=== PATIENT | male | born 1935 | race Caucasian/White ===

== ENCOUNTER 2016-05-13 11:45 | Inpatient (IN) | payer MEDICARE, OTHER ==
[~2016-05-13] VITALS: Ht 200.7 cm; Wt 76.6 kg
[~2016-05-13 11:45] MED LIST: ALLERGY RELIEF PO; ASPIRIN 81 MG E81 MG PO; BETAPACE 80 MG80 MG PO; CALCIUM 600+D T1 TA1 PO; CALCIUM PO; COLLAGEN PO; COMBIGAN OPHT DR5 ML OP; GLUCOSAMINE & C1 CAP PO; K-TAB10 MEQ PO; KRILL OIL 1,001 EAC1 PO; KRILL OIL PO; LAMISIL250 MG PO; LASIX20 MG PO; LIPITOR10 MG PO; LOPRESSOR25 MG PO; MULTIPLE VITAMI1 TA1 PO; NIACIN PO; NIASPAN1000 MG PO; PLAVIX75 MG PO; STOOL SOFTENER100 M1 PO; STOOL SOFTENER250 MG PO; VITAMIN B COMPL1 TAB PO; VITAMIN C1000 MG PO; VITAMIN D31000 UNIT PO; VITAMIN E1000 UNIT PO; VITAMIN E400 UNI2 PO; ZESTRIL10 MG PO; ZINC PO; ZINC50 MG PO; [UNRECOGNIZED DRUG - OTHER] PO
--- NOTE | 2016-05-13 12:25 | NUR ---
RECEIVED PT THRU ADMISSIONS FROM DR WOO'S OFFICE AAOX4 RESP UNLABORED GENERALIZED WEAKNESS NOTED DENIES ANY PAIN OR DISCOMFORT WILL CONTINUE TO MONITOR
[2016-05-13 12:40] LABS: BASOPHILS 0.5 % (0.0-2.0); EOSINOPHILS 2.5 % (0-7); HEMOGLOBIN 12.1 g/dL (13.5-17.5); IMMATURE GRANULOCYTES 0.2 % (0-5); LYMPHOCYTES 25.9 % (15-50); MCH 28.7 pg (26.0-34.0); MCHC 32.7 g/dL (31.0-37.0); MCV 87.7 fL (80.0-100.0); MEAN PLATELET VOLUME 10.3 fL (7.4-10.4); MONOCYTES 12.5 % (2-11); NEUTROPHILS 58.4 % (40-80); PLATELET COUNT 178 10x3/uL (130-400); RBC 4.22 10x6/uL (4.20-6.10); RDW 14.2 % (11.5-14.5); WBC 4.3 10x3/uL (4.8-10.8)
[2016-05-13 13:02] LABS: ALBUMIN 3.2 g/dL (3.4-5.0); ALKALINE PHOSPHATASE 75 U/L (46-116); ALT (SGPT) 25 U/L (10-68); CALC OSMOLALITY 281 mosm/kg (275-300); CALCIUM 8.8 mg/dL (8.5-10.1); CARBON DIOXIDE 27.1 mmol/L (21.0-32.0); CHLORIDE - SERUM 104 mmol/L (98-107); CREATININE - SERUM 1.1 mg/dL (0.6-1.3); GLUCOSE 83 mg/dL (74-106); POTASSIUM - SERUM 3.8 mmol/L (3.5-5.1); PROTEIN - SERUM 7.1 g/dL (6.4-8.2); SODIUM 139 mmol/L (136-145); UREA NITROGEN 26 mg/dL (7-18); eGFR NON AFRICAN AMERICAN 68 mL/min (90-120)
[2016-05-13 13:16] LABS: CKMB 2.5 U/L (0.0-3.6); CREATINE KINASE 67 UL (21-232); THYROID STIMULATING HORMONE 2.26 uIU/mL (0.36-3.74)
[2016-05-13] MEDS ORDERED: PROTONIX40 MG PO (14:34)
[2016-05-13] MEDS ORDERED: DULCOLAX5 MG PO (14:36)
[2016-05-13] MEDS ORDERED: PROBIOTIC1 EAC1 PO (14:37)
[2016-05-13] MEDS ORDERED: BIOTIN5 MG PO (14:39)
[2016-05-13 14:53] VITALS: BP 108/71
[2016-05-13 16:00] VITALS: BP 100/75
[2016-05-13 19:55] LABS: CKMB 2.5 U/L (0.0-3.6); CREATINE KINASE 51 UL (21-232); TROPONIN-I 0.046 ng/mL (0.000-0.060)
--- NOTE | 2016-05-13 20:00 | NUR ---
RESTING IN BEDSIDE CHAIR. ALERT/ORIENTED. PACEMAKER PER TELEMETRY. NONLABORED RESPIRATIONS ON ROOM AIR. SALINE LOCK TO LFA. DENIES ANY PAIN OR ANY NEEDS AT THIS TIME. CALL LIGHT IN REACH. CPOC.
[2016-05-13 20:21] VITALS: BP 111/68
[2016-05-14 00:31] VITALS: BP 95/64
--- NOTE | 2016-05-14 02:02 | NUR ---
ASSISTED UP TO USE URINAL. BED ALARM ON BED. PT CALLS FOR ASSISTANCE. CPOC.
[2016-05-14 03:50] LABS: CKMB 1.6 U/L (0.0-3.6); CREATINE KINASE 47 UL (21-232)
[2016-05-14 03:54] LABS: TROPONIN-I 0.074 ng/mL (0.000-0.060)
[2016-05-14 04:03] VITALS: BP 102/61
[2016-05-14 08:00] VITALS: BP 100/73
--- NOTE | 2016-05-14 10:08 | NUR ---
TELEMETRY PACED. IV PATENT. UP IN CHAIR WITH CALL LIGHT IN REACH. WILL CONT. PLAN OF CARE.
--- NOTE | 2016-05-14 11:24 | HP ---
PATIENT: ALANNAH ANTOINE MEDICAL RECORD: [id number] ACCOUNT: [id number] LOCATION:[address] : 33 ADMISSION DATE: 05/13/16 HISTORY AND PHYSICAL EXAMINATION Admission History and Physical DATE OF ADMISSION: 05/13/2016 CHIEF COMPLAINT: CHF, lower extremity edema and low blood pressure. HISTORY OF PRESENT ILLNESS: An 80-year-old white male with a known history of coronary artery disease and sick sinus syndrome, who came into my office on May 10 with a lower extremity edema, which was new and increased shortness of breath and dyspnea on exertion. I recommended hospitalization and he declined. His blood pressure was in the low end of normal and really all I can do is double his Lasix and have him come back today in my office for further evaluation. I spoke to Dr. Ruiz after I saw the patient on May 10 and was told that he had echocardiogram done in Dr. Ruiz's office about a month ago showing ejection fraction of about 30%. He also had a stress test done, which did not show any acute ischemia. Today, he is accompanied by 2 daughters and other family members who are very concerned about him. He lives alone. He is weaker. He had shortness of breath. He has actually lost 5 pounds from when I saw him earlier this week, but is difficult to add on more medications because of his low blood pressure. He is admitted. PAST MEDICAL HISTORY: Coronary artery disease, hypertension, high cholesterol, arthritis, reflux, sick sinus syndrome, peripheral artery disease, spinal stenosis with chronic back pain, gastroparesis found at [facility] several weeks ago. PAST SURGICAL HISTORY: A 5-vessel CABG by Dr. Winter in June of 2012, pacemaker by Dr. Winter in June of 2012, stent in peripheral artery by Dr. Ruiz in 2013, left inguinal hernia repair by Dr. Griffin in May of 2014, laparoscopic cholecystectomy by Dr. Massey in April of 2015. ALLERGIES: CODEINE. HOME MEDICATIONS: Include Lasix 20 mg 2 a day, potassium 10 mEq once a day, Plavix 75 mg once a day, atorvastatin 10 mg once a day, Combigan eyedrops daily, and metoprolol 25 mg 1/2 pill once a day. HABITS: Former smoker. No alcohol or drugs. SOCIAL HISTORY: He is . He is a retired contractor. FAMILY HISTORY: No significant coronary artery disease. REVIEW OF SYSTEMS: GENERAL: He has lost weight over the last few months. HEENT: No particular sinus or allergy problems. RESPIRATORY: No known emphysema or asthma. CARDIAC: See above history, followed by Dr. Ruiz. GASTROINTESTINAL: He has had this gastroparesis noted. GENITOURINARY: No significant problems there. MUSCULOSKELETAL: Chronic low back pain. HISTORY AND PHYSICAL [id number] ALANNAH ANTOINE NEUROLOGIC: No seizures or headaches. PSYCHIATRIC: Denies depression or melancholia. PHYSICAL EXAMINATION: VITAL SIGNS: In my office today, his blood pressure was 98/68, sitting in a wheelchair. GENERAL: He is awake and alert, does not appear in distress. HEENT: Grossly within normal limits. NECK: Supple. No bruits. HEART: Regular rate and rhythm without murmur. LUNGS: Fairly clear. ABDOMEN: Soft, flat, nontender. EXTREMITIES: He still has 2+ edema in the feet and ankles bilaterally. ASSESSMENT: 1. Acute systolic congestive heart failure. 2. History of hypertension, now has a low blood pressure. 3. History of coronary artery disease. PLAN: Diurese. Consult cardiology to see if there are any other medicines that we can add if his blood pressure will stay up. Other tests and procedures as warranted. TRANSINT:[id number] Voice Confirmation ID: [id number] DOCUMENT ID: [id number] SAVANHA WOO MD at 1124 CC: [id number] DICTATION DATE: 05/13/16 1339 GUN BARREL FINISHER: 05/13/16 1451 ADM IN [place] [id number] [place] [address]
[2016-05-14 11:55] VITALS: Ht 200.7 cm; Wt 76.6 kg
[2016-05-14 12:00] VITALS: BP 104/58
[2016-05-14 16:00] VITALS: BP 95/55
[2016-05-14 20:38] VITALS: BP 107/60
[2016-05-15 04:40] VITALS: BP 110/66
[2016-05-15 06:39] LABS: BASOPHILS 0.3 % (0.0-2.0); EOSINOPHILS 0.5 % (0-7); HEMATOCRIT 36.4 % (42.0-54.0); HEMOGLOBIN 12.1 g/dL (13.5-17.5); LYMPHOCYTES 23.3 % (15-50); MCH 28.3 pg (26.0-34.0); MCHC 33.2 g/dL (31.0-37.0); MONOCYTES 14.2 % (2-11); NEUTROPHILS 61.7 % (40-80); PLATELET COUNT 187 10x3/uL (130-400); RBC 4.27 10x6/uL (4.20-6.10); RDW 13.7 % (11.5-14.5); WBC 3.7 10x3/uL (4.8-10.8)
[2016-05-15 06:50] LABS: ANION GAP 13.2 mmol/L (8-16); CALCIUM 9.1 mg/dL (8.5-10.1); CARBON DIOXIDE 29.3 mmol/L (21.0-32.0); CREATININE - SERUM 1.4 mg/dL (0.6-1.3); POTASSIUM - SERUM 3.5 mmol/L (3.5-5.1)
[2016-05-15 06:53] LABS: MCV 85.2 fL (80.0-100.0)
--- NOTE | 2016-05-15 07:30 | NUR ---
TELEMETRY PACED. B/P CALLED TO DR. LEAVITT. WILL DC BUMEX GTT AND HOLD AM LOPRESSOR. UP IN CHAIR WITH CALL LIGHT IN REACH. WILL CONT. PLAN OF CARE.
[2016-05-15 08:00] VITALS: BP 80/49
[2016-05-15] MEDS ORDERED: FLOMAX0.4 MG PO (11:55)
[2016-05-15] MEDS ORDERED: LASIX40 MG PO (11:55)
[2016-05-15 12:00] VITALS: BP 85/52
--- NOTE | 2016-05-15 13:04 | NUR ---
Patient Name: ALANNAH ANTOINE Admission Status: Elective Accout number: [id number] Admission Date: 05-13-2016 : 1935 Admission Diagnosis: CHF Attending: MARY Current LOS: 2 Anticipated DC Date: 05-15-2016 Planned Disposition: Home with Home Health Primary Insurance: MEDICARE A & B Discharge Planning Comments: CM met with patient and daughters to complete initial dc planning assessment and order HH as ordered by Dr. Oh. Patient lives home alone and has 7 children that checks on him and assists him as needed. HH has been ordered for CHF education and other services. MICK discussed, Aubrey selected, MICK form signed by patient's daughter Alvina. CM called [facility] and spoke to Bryan Elise RN who took referral information and stated they would contact patient/daughter to make arrangements for the first visit. CM educated patient and family on importance of daily weights and limiting sodium intake in his diet. They all verbalized understanding. Patient and family denied further discharge needs at this time. CM faxed referral information to [facility] @ [phone]. No further needs verbalized at this time. CM available for if further needs arise prior to dc today. Security Intelligence Analyst: Bonnie Whitman RN, [facility] [phone] Is the patient Alert and Oriented? Yes * How many steps to enter\exit or inside your home? none * PCP Dr. Cruz * Preadmission Environment Home Alone * ADLs Independent * Equipment Cane Shower Chair Walker * Other Equipment Shower bars * List name and contact numbers for known caregivers / representatives who currently or will assist patient after discharge: Alvina Powers - daughter - [phone] * Community resources currently utilized None * Please name any agencies selected above. No services prior to admission * Additional services required to return to the preadmission environment? Yes * Can the patient safely return to the preadmission environment? Yes * Has this patient been hospitalized within the prior 30 days at any hospital? No
--- NOTE | 2016-05-15 14:35 | NUR ---
IV AND TELEMETRY DCD. DC PLANS GIVEN. UNDERSTANDING VOICED. ESCORTED TO CAR BY W/C.
--- NOTE | 2016-05-27 10:19 | CN ---
PATIENT NAME:ALANNAH ANTOINE MEDICAL RECORD: [id number] : 31 LOCATION:. D.2122 ADMIT DATE: 05/13/16 ACCOUNT: [id number] CONSULTING PHYSICIAN: ADAMA LEAVITT MD REFERRING PHYSICIAN: SAVANAH WOO MD DATE OF CONSULTATION: 05/14/2016 DIAGNOSES: 1. Congestive heart failure, chronic systolic dysfunction. 2. Shortness of breath. 3. Lower extremity edema. HISTORY OF PRESENT ILLNESS: Mr. Antoine presents really with lower extremity edema as his main complain and shortness of breath as well. He has chronic systolic dysfunction, ejection fraction in the 30% range. His troponin is mildly elevated. He has not had any chest pain or chest discomfort. He does have a history of coronary artery disease, underwent nuclear stress testing last month, which was negative for inducible ischemia, only positive for the previous myocardial infarction and ejection fraction is 30%. PHYSICAL EXAMINATION: GENERAL APPEARANCE: Well-nourished, well-developed, appears stated age. Level of distress, comfortable. PSYCHIATRIC: Mental status, alert, normal affect. Orientation, oriented to time, place and person. EYES: Lids and conjunctiva, noninjected. No discharge, no pallor. ENT: Lips, teeth, gums, normal dentition. Oropharynx, no cyanosis, no pallor. NECK: Carotid arteries, bilateral normal upstroke, no bruits, no thrills. JUGULAR VEINS: No jugular venous pressure or distention. CERVICAL LYMPH NODES: Nontender, nonenlarged. THYROID: Not enlarged. Nontender. No nodules. LUNGS: Respiratory effort, unlabored. CHEST: Normal curvature. No thoracic deformity. No chest wall tenderness. Percussion, resonant. Auscultation, clear. No wheezes, no rales, no rhonchi. CARDIOVASCULAR: Precordial exam, nondisplaced. No heaves or pericardial thrills. Rate and rhythm, regular. Heart sounds, normal S1, normal S2. No S3, no gallop, no rub. Systolic murmur, not heard. Diastolic murmur, not heard. EXTREMITIES: On lower extremity exam, he has +3 pitting edema. ABDOMEN: Soft, nondistended. Normal aorta. No bruit. Nontender. No masses. Liver, nontender, no hepatomegaly. Spleen, nontender, no splenomegaly. MUSCULOSKELETAL: No joint tenderness. No joint swelling. No erythema. NEUROLOGICAL: Normal gait, normal strength, normal tone. SKIN: Warm and dry. REVIEW OF SYSTEMS: The patient reports easy bruising but reports no swollen glands. The patient reports no fever, no night sweats, no significant weight gain, no significant weight loss. No significant exercise tolerance. The patient reports no dry eyes, no irritation, no vision change. Patient reports no difficulty hearing and no ear pain. Patient reports no frequent nose bleeds or nose and sinus problems. Patient reports on arm pain on exertion. No shortness of breath while lying down. No history of heart murmur. Patient reports no cough, no wheezing or coughing up blood. Patient reports no abdominal pain, no vomiting. Normal appetite. No diarrhea and not vomiting blood. No nausea and no constipation. Patient reports no incontinence. No difficulty urinating. No hematuria. No increased frequency. Patient reports CONSULT REPORT [id number] ALANNAH NATOINE no muscle aches. No weakness, no arthralgias, no back pain. No swelling of the extremities. The patient reports no abnormal mole, no jaundice, no rashes. Reports no loss of consciousness. No weakness and no numbness. No seizures, dizziness, or headaches. The patient reports no depression, no sleep disturbance, feeling safe in a relationship and no alcohol abuse. The patient reports on fatigue. Reports no runny nose or sinus pressure. No itching, no hives, and no frequent sneezing. OVERALL IMPRESSION: Fluid retention, decompensated congestive heart failure. I do not think he needs cardiac catheterization. The increased troponin is demand ischemia from the chronic systolic dysfunction. We will start him on dobutamine as well as Bumex drips. This will give a good diuresis and hopefully, we will get him out of the hospital soon. He is currently on Lopressor and Lasix, but not on Entresto or an FRANCESCO or ARB. We will start him on Entresto as well if his blood pressure will tolerate it. TRANSINT:[id number] Voice Confirmation ID: [id number] DOCUMENT ID: [id number] ADAMA LEAVITT MD at 1019 CC: [id number] DICTATION DATE: 05/14/16 0845 GYPSUM ROOFER: 05/14/16 0909 DIS IN 05/15/16 [facility] [address] [place] [address]
== END 2016-05-15 14:36 | disposition home health service (06) | DRG 292 ==
LOC: D.M2 11:45
PROVIDERS: ADMIT Family Medicine
DX: I11.0 Hypertensive heart disease with heart failure (principal); I24.8 Other forms of acute ischemic heart disease; I50.23 Acute on chronic systolic (congestive) heart failure; I25.10 Atherosclerotic heart disease of native coronary artery without angina pectoris

== ENCOUNTER 2016-05-17 12:54 | Observation (INO) | payer MEDICARE, OTHER ==
[~2016-05-17] VITALS: Ht 188 cm; Wt 66.5 kg
[~2016-05-17 12:54] MED LIST changes: +BIOTIN5 MG PO; +DULCOLAX5 MG PO; +FLOMAX0.4 MG PO; +LASIX40 MG PO; +PROBIOTIC1 EAC1 PO; +PROTONIX40 MG PO
[2016-05-17 13:17] LABS: BASOPHILS 0.4 % (0.0-2.0); EOSINOPHILS 3.4 % (0-7); HEMATOCRIT 38.4 % (42.0-54.0); HEMOGLOBIN 12.4 g/dL (13.5-17.5); IMMATURE GRANULOCYTES 0.2 % (0-5); LYMPHOCYTES 28.8 % (15-50); MCH 28.3 pg (26.0-34.0); MCHC 32.3 g/dL (31.0-37.0); MCV 87.7 fL (80.0-100.0); MONOCYTES 14.9 % (2-11); NEUTROPHILS 52.3 % (40-80); PLATELET COUNT 199 10x3/uL (130-400); RBC 4.38 10x6/uL (4.20-6.10); RDW 13.9 % (11.5-14.5)
[2016-05-17 13:43] LABS: ALBUMIN 3.6 g/dL (3.4-5.0); ANION GAP 11.4 mmol/L (8-16); BILIRUBIN - TOTAL 0.68 mg/dL (0.2-1.3); CALCIUM 8.8 mg/dL (8.5-10.1); CARBON DIOXIDE 33.4 mmol/L (21.0-32.0); CREATININE - SERUM 1.4 mg/dL (0.6-1.3); POTASSIUM - SERUM 3.8 mmol/L (3.5-5.1); PROTEIN - SERUM 7.8 g/dL (6.4-8.2)
--- NOTE | 2016-05-17 17:40 | NUR ---
PT ARRIVED TO FLOOR FROM ER VIA WHEELCHAIR. PLACED IN BED. NON SKID SOCKS PLACED, YELLOW BAND PLACED, IV IN RIGHT FOREARM. LEFT PACEMAKER SITE SEEN LEFT UPEER CHEST. PLACE ON 2L O2 VIA NC, PLACED ON HEART MONITOR. WILL ADMIT
[2016-05-17 18:27] VITALS: BP 112/69
[2016-05-17 21:58] VITALS: BP 97/64
[2016-05-18] VITALS: BP 190/82
--- NOTE | 2016-05-18 00:11 | NUR ---
RESTING WITH EYES CLOSED, RESPERATIONS EVEN, NO S/S DISTRESS NOTED.
[2016-05-18 02:32] LABS: APPEARANCE CLEAR (CLEAR); BILIRUBIN NEGATIVE (NEGATIVE); COLOR YELLOW (YELLOW); GLUCOSE NEGATIVE (NEGATIVE); KETONE NEGATIVE (NEGATIVE); LEUKOCYTE ESTERASE NEGATIVE (NEGATIVE); NITRITE NEGATIVE (NEGATIVE); PH 5.5 (5.0-6.0); PROTEIN NEGATIVE (NEGATIVE); SPECIFIC GRAVITY 1.015 (1.005-1.020); UROBILINOGEN NORMAL (NORMAL)
[2016-05-18 02:35] LABS: EPITHELIAL CELLS 0-5 /hpf (0-5); RED CELLS - URINE >50 /hpf (0-5); WHITE CELLS - URINE 0-5 /hpf (0-5)
[2016-05-18 02:36] LABS: BACTERIA FEW /hpf (NONE SEEN)
--- NOTE | 2016-05-18 04:00 | NUR ---
ENVIRONMENTAL HEALTH TECHNICIAN AT BEDSIDE FOR VS. NEEDS ADDRESSED AT THIS TIME. CALL LIGHT IN REACH. WILL CONT TO MONITOR.
[2016-05-18 05:12] LABS: ANION GAP 13.6 mmol/L (8-16); CALCIUM 8.2 mg/dL (8.5-10.1); CARBON DIOXIDE 27.6 mmol/L (21.0-32.0); CREATININE - SERUM 1.1 mg/dL (0.6-1.3); POTASSIUM - SERUM 4.2 mmol/L (3.5-5.1)
[2016-05-18 06:05] VITALS: BP 118/63
[2016-05-18 07:55] VITALS: BP 103/60; BP 97/77
--- NOTE | 2016-05-18 08:14 | HP ---
PATIENT: ALANNAH ANTOINE MEDICAL RECORD: [id number] ACCOUNT: [id number] LOCATION:[address] : 33 ADMISSION DATE: 05/17/16 HISTORY AND PHYSICAL EXAMINATION Admission History and Physical DATE OF ADMISSION: 05/17/2016 CHIEF COMPLAINT: Weakness, near syncope. HISTORY OF PRESENT ILLNESS: This is an 80-year-old white male, who was recently admitted on May 13 to [facility] with congestive heart failure, lower extremity edema and weakness. He was diuresed, felt better and was discharged home on 05/15/2016. He seemed to be fairly well at home; however, he was sitting at the table this morning and has ____ where he just sat there and ____ dropped. He felt like he was going to pass out, but he did not, symptoms lasted about 30 seconds. After that, he felt very weak. No diaphoresis, no nausea. No vomiting, no chest pain. It was decided to bring him to the Emergency Room for further evaluation. His systolic blood pressure was in the low 90s there. It was felt that with his recent diuresis, he is probably having dehydration. He is assigned to observation. He had a home health nurse come out yesterday and apparently, they were trying to get him into [facility]. He was reportedly going to be evaluated today for that through the home health agency, but they have gone to the Emergency Room instead. PAST MEDICAL HISTORY: Coronary artery disease, hypertension, now low; high cholesterol, arthritis, reflux, sick sinus syndrome, peripheral artery disease, spinal stenosis with chronic back pain, gastroparesis found at [facility] several weeks ago. PAST SURGICAL HISTORY: A 5-vessel CABG by Dr. Winter in June 2012, pacemaker by Dr. Winter in June 2012, stent in peripheral artery by Dr. Ruiz in 2013, left inguinal hernia repair by Dr. Griffin in May 2014, laparoscopic cholecystectomy by Dr. Massey in April 2015. ALLERGIES: CODEINE. HABITS: If he smoked, it was very little. No alcohol or drugs. SOCIAL HISTORY: , retired contractor. FAMILY HISTORY: No significant heart disease. HOME MEDICATIONS: Include Lamisil 250 mg once a day, Flomax 0.4 mg once a day, Plavix 75 mg once a day, metoprolol tartrate 25 mg one half p.o. q. day, atorvastatin 10 mg at bedtime, Lasix 40 mg twice a day, just started on May 15, potassium chloride 10 mEq, he takes 2 pills once a day, zinc gluconate 50 mg once a day, Colace 100 mg once a day, Protonix 40 mg once a day, Dulcolax 5 mg once a day, probiotic 2 tablets daily, vitamin C 1000 mg once a day, multivitamin once a day, vitamin D3 of 2000 units once a day, biotin 5 mg once a day, vitamin B complex 1 tablet once a day, aspirin 81 mg once a day, Krill oil 350 mg once a day. HISTORY AND PHYSICAL [id number] ALANNAH ANTOINE REVIEW OF SYSTEMS: GENERAL: He has had weight loss over the last several months, attributed to gastroparesis, but also the fact that he lives alone. He prepares his own meals, but he is living alone and does not do well by himself. HEENT: No particular sinus or allergy problems. RESPIRATORY: No history of emphysema or asthma. CARDIAC: See above history, followed by Dr. Ruiz. He had a recent echo approximately a month ago showing ejection fraction of approximately 30%. GASTROINTESTINAL: Has had reflux. He has a diagnosis of gastroparesis per [facility]. GENITOURINARY: He has BPH. MUSCULOSKELETAL: Chronic back pain with spinal stenosis in his back. He has arthritic aches and pains. NEUROLOGIC: No seizures, no migraine headaches. PSYCHIATRIC: Denies depression or melancholia. PHYSICAL EXAMINATION: VITAL SIGNS: Temperature 98.1, pulse 75, respirations 20, blood pressure 112/69, O2 sat 89%. GENERAL: He is awake and alert. He does not appear to be in acute distress at this time. SKIN: Warm and dry. HEENT: Grossly within normal limits. NECK: Supple. HEART: Regular rate and rhythm without murmur. LUNGS: Clear to auscultation. ABDOMEN: Soft, flat, nontender. EXTREMITIES: No edema at this time. BACK: He has generalized pain in the lumbar area. LABORATORY DATA: CBC with a white count of 5000, hemoglobin 12.4, hematocrit 38.4. Sodium 138, potassium 3.8, chloride 97, CO2 of 33.4, BUN 38, creatinine 1.4, glucose 94, calcium 8.8. Liver functions are all normal. ProBNP 9088. IMAGING: Chest x-ray with moderate cardiomegaly. ASSESSMENT: 1. Acute dehydration, probably from too much Lasix. 2. Near syncope. 3. Weakness. PLAN: We will get CT of his head. We will hold Lasix with gentle rehydration overnight. Recheck labs in the morning. Get case management involved to see about this rehab thing, long discussion with daughters about information they are getting from the nurses, especially through home health. I am trying to give them some insight on what is going on with their father. Other tests and procedures as warranted. TRANSINT:[id number] Voice Confirmation ID: [id number] DOCUMENT ID: [id number] HISTORY AND PHYSICAL [id number] ALANNAH ANTOINE WILLIAM MD at 0814 CC: [id number] DICTATION DATE: 05/17/16 2357 CARBON GRINDER: 05/18/16 0051 ADM IN [facility] [address] [place] [address]
[2016-05-18 13:28] VITALS: Ht 188 cm; Wt 66.5 kg
[2016-05-18 16:05] VITALS: BP 98/56
--- NOTE | 2016-05-18 18:04 | NUR ---
Patient Name: ALANNAH ANTOINE Admission Status: ER Accout number: [id number] Admission Date: 05-17-2016 : 1935 Admission Diagnosis: Attending: MARY Current LOS: 1 Anticipated DC Date: 05-19-2016 Planned Disposition: Inpatient Rehab Primary Insurance: MEDICARE A & B PLANNED EXTERNAL PROVIDER: [facility] Discharge Planning Comments: * Is the patient Alert and Oriented? Yes 0 * How many steps to enter\exit or inside your home? NONE 0 * PCP DR. WOO 0 * [facility] [address] [facility] * Preadmission Environment Home Alone 0 * ADLs Independent 0 * Equipment Cane Walker 0 * Other Equipment NO MEDICAL EQUIPMENT PROVIDER PREFERENCE 0 * List name and contact numbers for known caregivers / representatives who currently or will assist patient after discharge: SAMAN BOO, DTR, LINA SARKAR, DTR, [phone] IBETH WILSON AND ROSEANNA ANTOINE 0 * Community resources currently utilized Home Health 0 * Please name any agencies selected above. [facility] 0 * Additional services required to return to the preadmission environment? Yes * Can the patient safely return to the preadmission environment? Yes 0 * Has this patient been hospitalized within the prior 30 days at any hospital? Yes 0 CM MET WITH PT AND FAMILY IN ROOM TO DISCUSS DISCHARGE PLANNING AND NEEDS. PT REPORTS LIVING AT HOME INDEPENDENTLY AND ALONE. PT HAS THREE CANES AND TWO WALKERS. PT HAS NO MEDICAL EQUIPMENT PROVIDER PREFERENCE. PT HAD [facility] HEALTH WITH [facility]. CM DISCUSSED AVAILABILITY OF HOME HEALTH, REHAB SERVICES AND MEDICAL EQUIPMENT. PT REPORTS BEING ACCEPTED AT [facility] FOR INPATIENT REH[facility], HE WILL GO THERE TOMORROW. CM SPOKE TO PAINT STOCK CLERK NURSE WHO VERIFIED THAT [facility] HAS CONTACTED HER AND WILL ACCEPT PT TOMORROW. FOR DISCHARGE, NURSE REPORT TO BE CALLED TO [facility] AT [phone]; FAX DISCHARGE INFORMATION TO [facility] AT [phone]. [facility] TO ARRANGE VAN TRANSPORTATION. Credit Control Administrator: Amari Flores
[2016-05-18 22:01] VITALS: BP 101/69
[2016-05-19 01:01] VITALS: BP 92/51
--- NOTE | 2016-05-19 01:17 | NUR ---
ASSESSED AT THE BEGINNING OF THE SHIFT. PT IS ALERT AND ORIENTED, ABLE TO VERBALIZE NEEDS. EARLY HE REQUESTED TO HAVE HIS MEDS EARLY AND ALSO A SLEEPING PILL. THE MD HAD INCREASED HIS SLEEPER MED DURING THE DAY AND THIS WAS GIVEN PER HIS REQUEST. HE HAS TELEMETRY IN PLACE AND HE IS PACED. NO DSTRESS NOTED AFTER HE WENT TO SLEEP WHEN HE RECEIVED HIS NEW ORDERED RESTORIL OF 15 MG. THE BED IS LOW, RAILS UP X'S 2 WITH THE CALL LIGHT AT HAND.
[2016-05-19 04:00] VITALS: BP 101/67
[2016-05-19 04:58] LABS: BASOPHILS 0.2 % (0.0-2.0); EOSINOPHILS 3.2 % (0-7); HEMATOCRIT 35.5 % (42.0-54.0); HEMOGLOBIN 11.3 g/dL (13.5-17.5); IMMATURE GRANULOCYTES 0.2 % (0-5); LYMPHOCYTES 29.2 % (15-50); MCH 28.3 pg (26.0-34.0); MCHC 31.8 g/dL (31.0-37.0); MEAN PLATELET VOLUME 10.4 fL (7.4-10.4); MONOCYTES 5.9 % (2-11); NEUTROPHILS 61.3 % (40-80); PLATELET COUNT 195 10x3/uL (130-400); RBC 3.99 10x6/uL (4.20-6.10); WBC 5.9 10x3/uL (4.8-10.8)
[2016-05-19 05:21] LABS: ANION GAP 11.9 mmol/L (8-16); CALCIUM 8.4 mg/dL (8.5-10.1); CARBON DIOXIDE 27.1 mmol/L (21.0-32.0); CREATININE - SERUM 1.3 mg/dL (0.6-1.3)
[2016-05-19] MEDS ORDERED: RESTORIL15 MG PO (08:30)
[2016-05-19] MEDS ORDERED: KLOR-CON 1010 MEQ PO (08:30)
[2016-05-19] MEDS ORDERED: FUROSEMIDE20 MG PO (08:30)
[2016-05-19 08:41] VITALS: BP 107/71
--- NOTE | 2016-05-19 13:09 | NUR ---
PT WILL DC TO [facility] BY PRIVATE VEHICLE WITH DAUGHTER. PT WILL DC AT 1330. ROOM WILL BE AVAILABLE AT [facility] AT 1400. RM #[phone]. NURSE TO CALL REPORT TO #[phone]
--- NOTE | 2016-05-19 14:13 | NUR ---
CM RECEIVED CALL FROM [facility] WITH [facility] TO INFORM THAT PATIENT HAS BEEN ACCEPTED TO FACILITY AND ROOM WILL BE READY AT 2PM. PT WILL DC TO [facility] TO ROOM 311 AND NURSE TO CALL REPORT TO [facility] AT [phone]. PATIENT WILL TRANSPORT VIA PRIVATE CAR PER HIS REQUEST AND [facility] IS AWARE. PT'S DAUGHTERS WILL PROVIDE PRIVATE CAR TRANSPORTATION TO REHAB FACILITY. PT AND FAMILY ARE AWARE OF ABOVE AND STATED [facility] CALLED TO GIVE DC INFO. NO FURTHER NEEDS VOICED.
--- NOTE | 2016-05-19 14:33 | NUR ---
ALERT AND ORIENTED X4. DC RT FA IV TIP INTACT. DISCHARGE INSTRUCTIONS GIVEN VERBALLY AND WRITTEN. DISCHARGE INSTRUCTIONS SIGNED ON CHART. REPORT CALLED TO EDMAR TURNER AT [facility]. ESCORT TO DAUGHTERS VEHICLE. DAUGHTER TRANSPORT TO REHAB. REMAIN FREE FROM INJURY.
== END 2016-05-19 14:43 ==
LOC: D.ER 12:54 → OBSVTIME 16:45 → D.M2 16:45
PROVIDERS: Emergency Medicine; ADMIT Family Medicine
DX: E86.0 Dehydration (principal); I50.21 Acute systolic (congestive) heart failure; I25.10 Atherosclerotic heart disease of native coronary artery without angina pectoris; Z95.1 Presence of aortocoronary bypass graft; Z95.0 Presence of cardiac pacemaker

== ENCOUNTER → 2016-06-15 15:43 | Outpatient (CLI) | payer MEDICARE, OTHER ==
[2016-05-18 13:28] VITALS: BMI 18.8
[~2016-06-15 15:43] MED LIST changes: +FUROSEMIDE20 MG PO; +KLOR-CON 1010 MEQ PO; +RESTORIL15 MG PO
== END | disposition home or self-care (01) ==
LOC: D.LAB 15:43
DX: R19.7 Diarrhea, unspecified (principal)

== ENCOUNTER → 2016-07-20 14:51 | Outpatient (CLI) | payer MEDICARE, OTHER ==
[2016-05-18 13:28] VITALS: BMI 18.8
== END | disposition home or self-care (01) ==
LOC: D.LAB 14:51
DX: A04.7 Enterocolitis due to Clostridium difficile (principal)